=== PATIENT | male | born 1970 | race Caucasian/White ===

== ENCOUNTER → 2022-03-31 14:34 | Outpatient (BNVA) | payer OTHER, SELFPAY | PROVIDERS: Visit Provider Internal Medicine | DX: Z13.89 Encounter for screening for other disorder (principal) ==

== ENCOUNTER → 2022-05-05 09:11 | Outpatient (REF) | payer OTHER, SELFPAY | LOC: HO.SL 09:11 | PROVIDERS: PCP Family Medicine; Visit Provider Internal Medicine | DX: Z13.89 Encounter for screening for other disorder (principal) ==

== ENCOUNTER → 2022-05-25 16:03 | Outpatient (REF) | payer OTHER, SELFPAY | LOC: HO.SL 16:03 | PROVIDERS: Visit Provider Internal Medicine | DX: G47.33 Obstructive sleep apnea (adult) (pediatric) (principal); E66.9 Obesity, unspecified | CPT/HCPCS: 95806 ==

== ENCOUNTER 2022-10-18 14:20 | Outpatient (AMB) | payer OTHER, SELFPAY ==
--- NOTE | 2022-10-18 14:31 | MHC.OFFVIS ---
Intake Vital Signs 10/18/22 14:32 Height 5 ft 11 in Weight 295 lb BMI 41.1 BP 110/62 Blood Pressure Location Lt brachial Position Sitting Pulse 70 Pulse Source Pulse Oximeter Pulse Oximetry (%) 95 Oxygen Delivery Method Room Air Intake Visit Reasons: Obstructive sleep apnea Intake Note: pt is here for follow up and states he is doing well, Allergies No Known Allergies Allergy (Verified 10/18/22 14:40) Medication List - Last Reconciled 10/18/22 by Daina Jeffries MD buspirone 20 mg PO .at bedtime cyanocobalamin (vitamin B-12) (Nascobal) ea intranasal fluticasone propionate 50 mcg/actuation (Flonase Allergy Relief) 1 spray intranasal BID omeprazole 20 mg PO DAILY testosterone enanthate 200 mg subcut QWEEK Do you need a note to return to daycare/school/sports/work: No HPI Obstructive sleep apnea HPI Details Azra 52 YEARS OLD GENTLEMAN IS A REGULAR USER OF BIPAP 20/15 CMS . HE HAD A FULLFACE MASK WHICH WAS NOT COMFORTABLE AND NOW CHANGED TO THE NASAL MASK WITH A CHINSTRAP WHICH IS WORKING VERY WELL. HE HAS BEEN USING IT THE ALL THE NIGHTS. SOME OF THE NIGHTS , WHEN HE IS TRAVELING OUT OF TOWN HE TAKES THE OLD CPAP MACHINE WITH, SO IT DOES NOT SHOW UP ON HIS THE COMPLIANCE THE RECORD. HE IS USING MORE THAN 7 HOURS PER NIGHT AND SLEEPS GOOD. HE DENIES. ANY DAYTIME SLEEPINESS WEIGHT IS STILL ON CHANGED. [facility] Medical History Obesity (BMI 30-39.9) RADHA treated with BiPAP Social History Patient Tobacco Use Status: Former Tobacco user Review of Systems Const All systems reviewed & are unremarkable except as noted in HPI and below Reports snoring (MODERATE) Eyes Reports no additional complaints ENT Reports nasal congestion (MILD OFF AND ON) Card Denies chest pain at rest, Denies irregular heart rhythm, Denies leg edema and Denies dyspnea on exertion Resp Denies cough, Denies dyspnea on exertion, Reports snoring (MODERATE) and Denies wheezing GI Reports heartburn (CONTROLLED WITH OMEPRAZOLE) Reports erectile dysfunction Musc Reports no additional complaints Skin/Breast Reports system reviewed and no additional complaints, except as documented Neuro Reports no additional complaints Psych Reports anxiety Endo Reports other (HYPOGONADISM BEING TREATED WITH TESTOSTERONE WEEKLY) Jad/Lymph Reports no additional complaints Aller/Immun Reports no additional complaints and Denies wheezing Physical Exam Vital Signs: Last Vital Signs Pulse 70 10/18/22 14:32 BP 110/62 10/18/22 14:32 Pulse Ox 95 10/18/22 14:32 Oxygen Delivery Method Room Air 10/18/22 14:32 BMI result Body Mass Index 41.1 Const Other: GROSSLY OBESE WITH ROUND FACE General: comfortable, no acute distress, alert and awake Orientation/consciousness: patient oriented x3 HEENT Head: Yes normal to inspection General nose exam: No nasal polyps present and No nasal discharge present Face and sinus: Yes sinuses nontender Mouth: oropharynx abnormals (OROPHARYNX IS NARROW AND CROWDED, MALLAMPATI CLASS 4) Eyes General: appearance normal, both eyes and all related structures Neck Neck: Yes normal visual inspection, Yes no lymphadenopathy, Yes trachea midline, Yes no JVD and Yes other (NECK CIRCUMFERENCE 16-1/2 INCH) Thyroid: Thyroid normal Chest Chest palpation & inspection: normal inspection of the chest, normal palpation of entire chest wall and no tenderness Resp Effort & Inspection: normal respiratory effort Auscultation: clear to auscultation bilaterally, no crackles and no wheezes Cardio Palpation: normal PMI Rate: regular rate Rhythm: regular rhythm Heart sounds: no gallops and no murmurs Peripheral pulses: Peripheral pulses 2+ throughout GI Palpation (GI): Soft to palpation, nontender, No hepatosplenomegaly present, no masses and Other GI palpation findings present (ABDOMEN IS GROSSLY OBESE AND PROTUBERANT) Auscultation: normal bowel sounds Back/Spine/Pelvis Thoracic/Lumbar Spine: thoracic and lumbar spine normal to inspection and thoraco-lumbar ROM limited Skin General skin exam: no rashes or lesions noted Neuro General: patient oriented x3 and no focal motor deficits Cranial nerves: Yes CN's II-XII intact bilaterally Extrem General: Yes normal to inspection, Yes no clubbing, cyanosis or edema and Yes no calf tenderness Psych Appearance: grossly normal and well kempt Speech and movement: Normal speech and movement present Results Reviewed Results Reviewed: COMPLIANCE FOR THE LAST 125 NIGHTS IS REVIEWED. HE USED 95/125 NIGHTS 76%. MENTIONED UP IN HPI, ON SOME NIGHTS HE USES HIS OLD MACHINE WHEN HE IS TRAVELING. SO HE IS USING ACTUALLY 100% OF THE NIGHTS. AVERAGE USE IT PER NIGHT 7 HOURS 35 MINUTES. PRESSURE 20/15 CM, NASAL MASK WITH CHINSTRAP. NO SIGNIFICANT AIR LEAK AND RESIDUAL AHI ONLY 0.1 Assessment & Plan Assessment & Plan (1) Obesity (BMI 30-39.9): Comment: HISTORY OF GASTROPLASTY, INITIALLY LOST 90 LB OF WEIGHT, BUT THEN BECAME CARE LESS AND HAS REGAINED 40 LB. HAD A GOOD DISCUSSION WITH HIM AND STRESSED THAT HE NEEDS TO LOSE WEIGHT. I SUGGESTED THAT HE COULD JOIN OUR WEIGHT MANAGEMENT PROGRAM. BUT HE WANTS TO DO IT ON HIS OWN AND SEEMS TO BE QUITE SERIOUS. Code(s): E66.9 - Obesity, unspecified (2) RADHA treated with BiPAP: Comment: LONGSTANDING HISTORY OF RADHA, RELATED TO HIS GROSS OBESITY, ANDROGEN TREATMENT WITH TESTOSTERONE, MAY HAVE CONTRIBUTED TO THE SEVERITY OF SLEEP APNEA. HE HAS THE NEW CPAP MACHINE WHICH WORKS VERY WELL, IT IS SET WITH BIPAP 20/15 CM . NASAL MASK WITH CHINSTRAP. HE IS COMMENDED FOR HIS GOOD COMPLIANCE AND ADVISE THAT HE SHOULD CONTINUE TO USE BIPAP EVERY NIGHT. Code(s): G47.33 - Obstructive sleep apnea (adult) (pediatric) Coding Level of Care Code Est Pt Level 3 (31667) Diagnoses Obesity (BMI 30-39.9) E66.9 RADHA treated with BiPAP G47.33
[2022-10-18 14:32] VITALS: BP 110/62; PULSE 70; O2SAT 95; BMI 41.1
== END 2022-10-18 14:47 | disposition home or self-care (01) ==
PROVIDERS: PCP Family Medicine; Visit Provider Internal Medicine
DX: E66.9 Obesity, unspecified (principal); G47.33 Obstructive sleep apnea (adult) (pediatric)
CPT/HCPCS: 99213

== ENCOUNTER → 2022-10-18 14:20 | Outpatient (BNVA) | payer OTHER, SELFPAY | PROVIDERS: PCP Family Medicine; Visit Provider Internal Medicine ==